=== PATIENT | female | born 1950 | race Caucasian/White ===

== ENCOUNTER → 2024-07-07 | Day surgery (SDC) | payer MEDICARE, MEDICAID ==
[~2024-07-07] VITALS: Ht 154.9 cm; Wt 87.1 kg
[~2024-07-07] MED LIST: ACETAMINOPHEN 325MG TABLET PO PRN; ATROPINE SULFATE 1MG/10ML SYR IV PRN; CIPR2.5D20 RIGHTEYE; DIPHENHYDRAMINE 50MG/ML VIAL ONE; FENTANYL CITRATE/PF 50MCG/ML 2ML VIAL ONE; HEPARIN 1000 UNITS/ML 10ML ONE; IODIXANOL 320MG/ML 100 ML BOTTLE IV ONE; LIDOCAINE HCL 1% 10 MG/ML 10ML VIAL ONE; LISI20TA31 PO; MIDAZOLAM HCL 2 MG/2 ML VIAL ONE; PRED5DRO22 RIGHTEYE; VERAPAMIL HCL 2.5 MG/1 ML 2ML VIAL IV ONE
[2024-07-07 07:08] LABS: CHLORIDE 104 mEq/L (98-107); SODIUM 138 mEq/L (136-145)
[2024-07-07 07:09] LABS: CALCIUM 9.6 mg/dL (8.7-10.4); CARBON DIOXIDE 28 mEq/L (21-32)
[2024-07-07 07:10] LABS: BASOPHILS % 0.9 % (0.0-2.0); DIFFERENTIAL COMMENT 0; EOSINOPHILS % 1.9 % (0.0-5.0); HEMATOCRIT. 41.1 % (36.0-48.0); HEMOGLOBIN. 13.9 g/dL (12.0-16.0); LYMPHOCYTES % 30.2 % (20.0-50.0); MEAN CORPUSCULAR HEMOGLOBIN 33.9 pg (28.0-32.0); MEAN CORPUSCULAR HGB CONC 33.9 g/dL (31.0-37.0); MEAN CORPUSCULAR VOLUME 100.1 fL (81.0-99.0); MEAN PLATELET VOLUME 6.8 fl (7.4-10.4); MONOCYTES % 9.7 % (2.0-8.0); NEUTROPHILS % 57.3 % (40.0-76.0); PLATELET 259 x1000/uL (130-400); RED CELL DISTRIBUTION WIDTH 13.6 % (11.6-14.6); WHITE BLOOD COUNT 6.9 x1000/uL (4.5-11.0)
[2024-07-07 07:14] LABS: CREATININE 0.7 mg/dL (0.6-1.0); GLUCOSE 95 mg/dL (70-105); UREA NITROGEN BLOOD 13 mg/dL (9-23)
[2024-07-07 07:34] LABS: PROTHROMBIN TIME 10.9 sec (9.6-11.0)
[2024-07-07] MEDS: SODIUM CHLORIDE 0.45% 500 ML IV NR (07:37)
== END | disposition home or self-care (01) ==
LOC: OR 06:34
PROVIDERS: ATTEND Internal Medicine
DX: I25.110 Atherosclerotic heart disease of native coronary artery with unstable angina pectoris (principal); R94.39 Abnormal result of other cardiovascular function study; I10 Essential (primary) hypertension; E66.9 Obesity, unspecified; I25.2 Old myocardial infarction; Z86.73 Personal history of transient ischemic attack (TIA), and cerebral infarction without residual deficits; Z79.899 Other long term (current) drug therapy; Z98.890 Other specified postprocedural states
CPT/HCPCS: 93458; 80048; 85025; 85610; 36415; C1893; C1769 ×2; J3010; Q9967; J1200; J1644 ×2; J3490 ×2; J2250; C1887; 99152; G0500